=== PATIENT | female | born 1955 | race Caucasian/White ===

== ENCOUNTER 2021-09-18 20:20 | Emergency (ER) | payer MEDICARE, OTHER ==
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
--- NOTE | 2021-09-18 21:26 | XRAY Report ---
PROCEDURE: Knee 4 View LT INDICATIONS: injury, pain, swelling, tenderness TECHNIQUE: 5 views of the left knee were acquired. COMPARISON: None. FINDINGS: Bones: No fractures or dislocations. There is mild lateral tilt and shift of the patella. Severe hunter nt space narrowing with subchondral sclerosis and osteophytosis is demonstrated in the patellofemoral compartment laterally. No suspicious bony lesions. Soft tissues: Prominent prepatellar soft tissue swelling is demonstrated. There is a small joint effu milton. No suspicious soft tissue calcifications. IMPRESSION: 1. No fracture or dislocation. 2. Severe osteoarthritic changes in the patellofemoral compartment. Reviewed by: Franklyn August MD on 09/18/2021 9:25 PM PDT Approved by: Franklyn August MD on 09/18/2021 9:25 PM PDT Station ID: [id number]
[2021-09-18] MEDS ORDERED: HYDROcod/ACET 5/325 Prepack 4 PO STA (21:48)
[2021-09-18 22:13] VITALS: BP 115/87
== END 2021-09-18 22:00 | disposition home or self-care (01) ==
LOC: ED 20:20
DX: M25.062 Hemarthrosis, left knee (principal); S83.92XA Sprain of unspecified site of left knee, initial encounter
CPT/HCPCS: 99283; 99284